=== PATIENT | male | born 1970 | race Caucasian/White ===

== ENCOUNTER 2019-03-26 14:48 | Emergency (ER) | payer MEDICARE ==
[~2019-03-26] VITALS: Ht 170.2 cm; Wt 93.0 kg
[~2019-03-26 14:48] MED LIST: CARISOPRODOL 3350 MG PO; LYRICA150 MG PO; RONDEC-DM SYRU120 ML PO; SUBOXONE 8 MG-1 EAC2 SL; ZPAK PO
[2019-03-26 15:06] LABS: ABSOLUTE BASOPHILS 0.1 thou/uL (0.0-0.2); ABSOLUTE EOSINOPHILS 0.2 thou/uL (0.0-0.7); ABSOLUTE LYMPHOCYTES 2.8 thou/uL (0.8-5.3); ABSOLUTE MONOCYTES 0.7 thou/uL (0.0-1.2); ABSOLUTE NEUTROPHILS 6.1 thou/uL (1.6-8.1); BASOPHILS 0.6 %; EOSINOPHILS 2.3 %; HEMATOCRIT 44.6 % (42.0-52.0); LYMPHOCYTES 28.4 %; MCH 32.6 pg (26.0-34.0); MCHC 35.9 g/dL (28.0-37.0); MCV 90.9 fL (80.0-100.0); MONOCYTES 6.8 %; MPV 7.9 fl. (7.2-11.1); NUCLEATED RBCS 0 /100WBC; PLATELET COUNT* 316 thou/uL (150-400); POLYS 61.9 %; RBC 4.91 mil/uL (4.50-6.00); RDW-CV 13.3 % (10.5-14.5); WBC 9.9 thou/uL (4.0-11.0)
[2019-03-26 15:15] LABS: ANION GAP 7 mmol/L (7-16); BUN 11 mg/dL (7-18); CHLORIDE 101 mmol/L (98-107); CO2 29 mmol/L (21-32); CREATININE 0.9 mg/dL (0.6-1.3); GLUCOSE 94 mg/dL (70-99); POTASSIUM 4.6 mmol/L (3.5-5.1); SODIUM 137 mmol/L (136-145)
[2019-03-26 15:18] LABS: APTT 30.1 Seconds (25.0-31.3); PROTIME 10.1 Seconds (9.20-11.50)
[2019-03-26 15:28] LABS: ALBUMIN 3.6 g/dL (3.4-5.0); ALKALINE PHOSPHATASE 64 U/L (46-116); CK-MB MASS 1.2 ng/mL (<0.5-3.6); LIPASE 239 U/L (73-393); MAGNESIUM 1.9 mg/dL (1.8-2.4); NT-PRO BRAIN NAT PEPTIDE 57 pg/mL (<300); SGOT 12 U/L (15-37); SGPT 17 U/L (30-65); TOTAL BILIRUBIN 0.4 mg/dL (<0.1-1.0); TOTAL PROTEIN 7.7 g/dL (6.4-8.2); TROPONIN-I LEVEL <0.06 ng/mL (<0.06)
[2019-03-26] MEDS ORDERED: PREDNISONE 20 M20 M1 PO (16:21)
[2019-03-26] MEDS ORDERED: VENTOLIN HFA 1818 GM INH (16:21)
[2019-03-26] MEDS ORDERED: ZPAK PO (16:21)
[2019-03-26 16:27] VITALS: BP 101/68
--- NOTE | 2019-03-27 10:47 | EKG ---
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
== END 2019-03-26 16:28 | disposition home or self-care (01) ==
LOC: M.ERS 14:48
PROVIDERS: Family Medicine
DX: J40 Bronchitis, not specified as acute or chronic (principal); F17.210 Nicotine dependence, cigarettes, uncomplicated

== ENCOUNTER 2020-05-21 17:49 | Emergency (ER) | payer MEDICARE ==
[~2020-05-21] VITALS: Ht 175.3 cm; Wt 99.8 kg
[~2020-05-21 17:49] MED LIST changes: +PREDNISONE 20 M20 M1 PO; +VENTOLIN HFA 1818 GM INH
[2020-05-21] MEDS ORDERED: ZANAFLEX4 MG PO (21:03)
[2020-05-21] MEDS ORDERED: NAPROSYN500 MG PO (21:03)
[2020-05-21 21:18] VITALS: BP 109/78
== END 2020-05-21 21:18 | disposition home or self-care (01) ==
LOC: M.ERS 17:49
DX: S46.211A Strain of muscle, fascia and tendon of other parts of biceps, right arm, initial encounter (principal); G43.909 Migraine, unspecified, not intractable, without status migrainosus; F17.210 Nicotine dependence, cigarettes, uncomplicated; X50.9XXA Other and unspecified overexertion or strenuous movements or postures, initial encounter; Y93.89 Activity, other specified; Y92.89 Other specified places as the place of occurrence of the external cause; Y99.8 Other external cause status

== ENCOUNTER 2020-09-02 14:06 | Emergency (ER) | payer MEDICARE ==
[~2020-09-02] VITALS: Ht 170.2 cm; Wt 99.8 kg
[~2020-09-02 14:06] MED LIST changes: +NAPROSYN500 MG PO; +ZANAFLEX4 MG PO
[2020-09-02] MEDS ORDERED: BACTRIM DS TAB1 EAC1 PO (14:48)
[2020-09-02 14:57] VITALS: BP 125/90
== END 2020-09-02 14:57 | disposition home or self-care (01) ==
LOC: M.ERS 14:06
DX: L02.211 Cutaneous abscess of abdominal wall (principal); F17.210 Nicotine dependence, cigarettes, uncomplicated